=== PATIENT | male | born 1955 | race Caucasian/White ===

== ENCOUNTER 2016-05-23 05:07 | Observation (INO) ==
[2016-05-23] MEDS ORDERED: NS 1,000 ML IV ONE ×2 (05:48→08:54)
[2016-05-23] MEDS ORDERED: TORADOL IV ONE (05:48)
[2016-05-23] MEDS ORDERED: ZOFRAN IV ONE (05:48)
[2016-05-23 05:56] LABS: MANUAL DIFF NEEDED? NO; URINE MICRO REVIEW NEEDED? NO; URINE SOURCE VOIDED
[2016-05-23 05:58] LABS: BASO% 0.2 % (0.0-0.8); EOS# 0.14 X1000 (0.0-0.7); EOS% 2.9 % (0.0-10.0); HEMATOCRIT 38.9 % (42.0-52.0); HEMOGLOBIN 13.8 g/dL (14.0-18.0); LYMPH# 1.02 X1000 (1.2-3.4); LYMPH% 20.9 % (20.5-51.1); MCH 30.1 PG (27-31); MCHC 35.5 g/dL (33-37); MCV 84.7 FL (81-99); MONO# 0.43 X1000 (0.11-0.59); MONO% 8.8 % (1.7-9.3); MPV 8.8 FL (7.4-10.4); NEUT% 67.2 % (42.2-75.2); PLT 121 X1000 (130-400); RBC 4.59 XMIL (4.7-6.1)
[2016-05-23 06:03] LABS: BILIRUBIN URINE NEGATIVE (NEGATIVE); BLOOD URINE MODERATE (NEGATIVE); COLOR YELLOW; GLUCOSE URINE NEGATIVE (NEGATIVE); LEUKOCYTES URINE NEGATIVE (NEGATIVE); NITRITE URINE NEGATIVE (NEGATIVE); PH URINE 5.5; PROTEIN URINE TRACE mg/dL (NEGATIVE); SP GRAVITY URINE 1.028; TURBIDITY URINE CLEAR (CLEAR); UR EPITHELIAL CELLS <10 /HPF (<10); URINE BACTERIA NEGATIVE /HPF; URINE WBC <10 /HPF (<10); UROBILINOGEN URINE NORMAL (NORMAL)
[2016-05-23 06:14] LABS: AGAP 14; ALBUMIN 4.3 g/dL (3.5-5.0); ALKALINE PHOSPHATASE 75 U/L (32-122); BUN 21 mg/dL (8-22); CALCIUM 9.5 mg/dL (8.8-10.2); CHLORIDE 105 mmol/L (98-107); COSMO 291; GOT 20 U/L (10-34); GPT 26 U/L (10-44); POTASSIUM 4.3 mmol/L (3.5-5.1); SODIUM 142 mmol/L (136-145); TCO2 23 mmol/L (25-35); TOTAL BILIRUBIN 0.33 mg/dL (0.20-1.00); TOTAL PROTEIN 6.8 g/dL (6.3-8.3)
[2016-05-23] MEDS ORDERED: MORPHINE IV ONE ×2 (06:39→07:50)
[2016-05-23] MEDS ORDERED: FLEXERIL PO ONE (07:02)
--- NOTE | 2016-05-23 08:06 | Diag Imaging Result Document ---
PROCEDURE NAME: CT ABD/PELVIS W/ IV CONT ONLY - 05/23/2016 CT ABDOMEN PELVIS WITH INTRAVENOUS CONTRAST, 05/23/2016: A CT dose reduction protocol was used. COMPARISON: None. FINDINGS: There is an obstructing left UVJ stone measuring 5 mm. There is moderate left hydronephrosis and hydroureter with delayed renal functioning and perinephric edema. Urinary bladder, prostate, and rectum are normal. There is diverticulosis of the sigmoid colon and descending colon. No bowel obstruction or inflammation. Normal appendix. Spleen size is mildly enlarged measuring 15.8 x 5.6 cm. There are a couple of small bilateral renal cysts. The liver, gallbladder, pancreas, and adrenals are normal. There is significant degeneration throughout the thoracolumbar spine. No acute bony lesion. There is severe degeneration of the sacroiliac joints as well. IMPRESSION: 1. Obstructing left UVJ stone. 2. Mild splenomegaly. 3. Diverticulosis coli. [facility]
[2016-05-23] MEDS ORDERED: LEVAQUIN 500 MG in NS 100 ML IV ONE (08:23)
--- NOTE | 2016-05-23 09:19 | PROVIDER DOCUMENTATION ---
HPI-Abdominal Pain/GI Problem - General Chief Complaint: Flank Pain Stated Complaint: LT SIDE PAIN Time Seen by Provider: 05/23/16 06:48 Source: patient Allergies/Adverse Reactions: Patient Allergies Allergy/AdvReac Type Severity Reaction Status Date / Time No Known Allergies Allergy Verified 05/23/16 05:17 Home Medications: Home Medication List Medication Instructions Recorded Confirmed Last Taken Type Metformin [Glucophage] 500 mg PO WBREAKFAST 06/05/14 05/23/16 05/22/16 07:00 History - History of Present Illness-ABD Nature of Presenting Problems: Patient is a 61 yo M that presents to the ER with left flank pain that radiates to his left groin with n/v. Symptoms came on suddenly. Denies fever, diarrhea, or abdominal pain. Reports history of kidney stones Abdominal Pain Onset Location: reports: flank (left) Pain Radiation: reports: groin (left) Quality of Pain: reports: sharp, stabbing Severity in ED: reports: moderate Onset/Duration: reports: abrupt, this morning Timing: reports: still present, constant Activities at Onset: reports: none Modifying Factors: worse with: urinating Associated Symptoms: reports: back/neck pain, genitourinary problems, nausea, vomiting. denies: diarrhea, fever/chills, shortness of breath Similar Symptoms Previously?: Yes Recently seen or treated by another doctor?: No Review of Systems - Adult - REVIEW OF SYSTEMS - ADULT Constitutional: denies: fever Eyes: reports: no symptoms reported Ears, Nose, Mouth & Throat: reports: no symptoms reported Cardiovascular: denies: chest pain, orthopnea, palpitations Respiratory: denies: cough, shortness of breath, wheezing Gastrointestinal: reports: abdominal pain, nausea, vomiting. denies: diarrhea Genitourinary: reports: dysuria, flank pain. denies: frequency Musculoskeletal: reports: no symptoms reported Integumentary: reports: no symptoms reported Neurological: reports: no symptoms reported Psychiatric: reports: no symptoms reported Endocrine: reports: no symptoms reported Hematologic/Lymphatic: reports: no symptoms reported Allergic/Immunologic: reports: no symptoms reported All Other Systems: Reviewed and Negative Past History - Adult - PAST MEDICAL HISTORY-ADULT Review of Records: reports: Old Records Reviewed, Nursing Assessment Review, Medications Reviewed Genitourinary: reports: kidney stones Endocrine/Immune: reports: Diabetes - PRIOR SURGERIES/PROCEDURES Surgical/Procedure History: reports: none - IMMUNIZATION STATUS Childhood Immunizations: UTD Flu Vaccine: See Nurse Assessment - FAMILY HISTORY Family History: reviewed, not pertinent - SOCIAL HISTORY Smoking: non-smoker Living Situation: family Physical Exam-General - PHYSICAL EXAM-ADULT Initial Vital Signs Reviewed: Yes - CONSTITUTIONAL General Appearance: alert, mild distress - EYES Eyes: PERRL/EOMI, pink conjunctivae - HEAD, EARS, NOSE, MOUTH & THROAT HENMT: normocephalic/atraumatic, moist mucous membranes, normal ENT inspection - NECK Neck: full range of motion, normal inspection - RESPIRATORY Respiratory: lungs clear, normal breath sounds, no respiratory distress, no accessory muscle use - CARDIOVASCULAR Cardiovascular: no murmur, bradycardia - GASTROINTESTINAL (ABDOMEN) Abdominal Exam: normal bowel sounds, soft, no organomegaly, no pulsatile mass, tenderness (left flank) - MUSCULOSKELETAL Back Exam: no vertebral tenderness, CVA tenderness (left) Extremity: normal range of motion, normal inspection, no pedal edema, normal capillary refill - SKIN Integumentary: normal color, warm/dry - NEUROLOGIC Neurologic: grossly normal, no motor/sensory deficits - PSYCHIATRIC Psych/Mental Status: normal mood/affect, normal thought content, normal thought process, oriented x 3 Progress - PLAN OF CARE/RESULTS Progress/Plan/Lab Results: plan of care-labs, meds, ct rss Vital Signs Temp Pulse Resp BP Pulse Ox 05/23/16 05:09 98.1 F 55 L 20 154/81 100 No Known Allergies Allergy (Verified 05/23/16 05:17) Metformin [Glucophage] 500 mg PO WBREAKFAST 06/05/14 Laboratory 05/23/16 05/23/16 05/23/16 05:42 05:42 05:42 WBC 4.89 RBC 4.59 L Hgb 13.8 L Hct 38.9 L MCV 84.7 MCH 30.1 MCHC 35.5 RDW Std Deviation 12.9 Plt Count 121 L MPV 8.8 Immature Gran % (Auto) 0.0 Neut % (Auto) 67.2 Lymph % (Auto) 20.9 [place] % (Auto) 8.8 Eos % (Auto) 2.9 Baso % (Auto) 0.2 Immature Gran # (Auto) 0.00 Neut # (Auto) 3.29 Lymph # (Auto) 1.02 L [place] # (Auto) 0.43 Eos # (Auto) 0.14 Baso # (Auto) 0.01 Sodium 142 Potassium 4.3 Chloride 105 Carbon Dioxide 23 L Anion Gap 14 BUN 21 Creatinine 1.1 Estimated GFR/1.73 m2 > 60 BUN/Creatinine Ratio 19 Glucose 193 H Calculated Osmolality 291 Calcium 9.5 Total Bilirubin 0.33 AST 20 ALT 26 Alkaline Phosphatase 75 Total Protein 6.8 Albumin 4.3 Globulin 2.5 Albumin/Globulin Ratio 1.7 Urine Source VOIDED Urine Color YELLOW Urine Turbidity CLEAR Urine pH 5.5 Ur Specific [place] 1.028 Urine Protein TRACE A Ur Glucose (Stick) NEGATIVE Ur Ketones (Stick) NEGATIVE Urine Blood MODERATE A Urine Nitrite NEGATIVE Urine Bilirubin NEGATIVE Urobilinogen Dipstick NORMAL Urine Leukocytes NEGATIVE Urine WBC (Auto) <10 Urine RBC (Auto) 10-20 A U Epithel Cells (Auto) <10 Urine Bacteria (Auto) NEGATIVE Orders Category Date Time Status CT ABD/PELVIS W/ IV CONT ONLY [CT] Stat Exams 05/23/16 07:02 Draft CBC WITH DIFF [HEME] Stat Lab 05/23/16 05:42 Completed CMP [COMPREHENSIVE METABOLIC PANEL] [CHEM] Stat Lab 05/23/16 05:42 Completed URINALYSIS [URINALYSIS] Stat Lab 05/23/16 05:42 Completed 0.9% Sodium Chloride Inj [Ns] 1,000 ml Med 05/23/16 05:48 Discontinued IV 999 mls/hr 0.9% Sodium Chloride Inj [Ns] 1,000 ml Med 05/23/16 08:54 Active IV 999 mls/hr Cyclobenzaprine [Flexeril] Med 05/23/16 07:02 Discontinued 10 mg PO NOW ONE Ketorolac [Toradol] Med 05/23/16 05:48 Discontinued 30 mg IV NOW ONE Levofloxacin [Levaquin] 500 mg Med 05/23/16 08:23 Active 0.9% Sodium Chloride Inj [Ns] 100 ml IV NOW Morphine Med 05/23/16 06:39 Discontinued 4 mg IV NOW ONE Morphine Med 05/23/16 07:50 Discontinued 4 mg IV NOW ONE Ondansetron [Zofran] Med 05/23/16 05:48 Discontinued 4 mg IV NOW ONE Transfer/Admit Order [TRANSFER] Routine Transfer 05/23/16 09:07 Ordered pt will be admitted to , who saw patient - CT/MRI 1 CT Study: Renal Stone Impression: Abnormal CT Results: 5mm stone Left UVJ with mild hydro - CONSULTS/PCP/HOSPITALIST Notification #1 *Consult/PCP/Hospitalist*: Dr. Leo Long Time Discussed: 08:50 Consult Disposition: Will see in ED, Admit Departure - Departure Time of Disposition Order: 08:50 DIAGNOSIS: Kidney stone on left side Hydronephrosis Qualifiers: Hydronephrosis type: with ureteral calculous obstruction Qualified Code(s): N13.2 - Hydronephrosis with renal and ureteral calculous obstruction Disposition: ADMITTED INPATIENT 09 Certified Medical Emergency: Emergent Condition: Stable Attestation - Scribe Verification/Attestation Scribe:: Jad Tse Acting as Scribe for:: Carlos Aceves Scribe documention review:: This chart was documented by a scribe and accurately reflects the service the provider performed and the decisions made by the provider. Physician Attestation - Physician Attestation I, the provider, attest to the following statement:: Carlos Aceves Physician documentation Attestation:: This documentation recorded by the scribe accurately reflects the service I personally performed and the decisions made by me.
--- NOTE | 2016-05-23 09:52 | HISTORY AND PHYSICAL ---
HISTORY OF PRESENT ILLNESS: Mr. Brandon Balderas is a 61-year-old gentleman with a history of type 2 pug-ehgswau-dfrhwilbg diabetes mellitus, who is well known to me. He waked up this morning with severe left flank pain with radiation to the groin. He had nausea and vomiting. He was able to void. He did not see any gross hematuria. He presented to the ER where a CT IVP demonstrated a distal left UVJ stone measuring 5 mm that was associated with moderate left hydronephrosis. He has gotten several doses of morphine in the ER, but is still having pain. PAST MEDICAL HISTORY: Type 2 fhl-fpsbiiz-siareeggi diabetes mellitus. PAST SURGICAL HISTORY: None. ALLERGIES: No known drug allergies. FAMILY HISTORY: His father had hypertension, CVA, coronary artery disease status post [place]. His mother has type 2 hab-uaccgwb-bzsxhzkns diabetes mellitus. His maternal grandfather and grandmother both had diabetes. MEDICATIONS: Aspirin 81 mg daily, metformin 500 mg b.i.d. SOCIAL HISTORY: He has never smoked. He does not consume alcoholic beverages. REVIEW OF SYSTEMS: General: He denies any recent weight gain or weight loss. HEENT: No loss of visual or auditory acuity. CV: No chest pain, palpitations, or anginal equivalents. Pulmonary: No shortness of breath, PND, orthopnea. GI: No reflux, dysphagia, melena, hematochezia, change in bowel habits or rectal bleeding. Endocrine: No polyuria, no polydipsia. No cold or heat intolerance. Skin: No easy bruisability. Neuro: No migraines or seizures. : See HPI. PHYSICAL EXAMINATION: GENERAL: This is a well-developed, well-nourished, 61-year-old, gentleman in no apparent distress. He is afebrile. VITAL SIGNS: Pulse 55, respirations 20, BP 154/81. HEENT: Fundi with sharp disks and vessels. Pupils equal, round, reactive to light. Extraocular eye movements intact. TMs without bullae. NECK: Supple. No masses, JVD or bruits. CV: Regular rate and rhythm. LUNGS: Clear. ABDOMEN: Soft, nontender, with active bowel sounds. No hepatosplenomegaly. No abdominal bruits. BACK: No CVA tenderness. /RECTAL: Exams deferred. NEUROLOGIC: Nonfocal. LABS: A CBC demonstrated white count of 4.8, hemoglobin 13.8, hematocrit 38.9, and a platelet count of 121,000. Electrolytes demonstrate the following: Sodium 142, potassium 4.3, chloride 103, CO2 23, BUN 21, creatinine 1.1, glucose 193. His urinalysis demonstrated moderate blood and trace protein. ASSESSMENT AND PLAN: 1. Distal left ureterovesical stone with associated hydronephrosis. I am going to admit him to [facility]. I will begin normal saline at 75 mL per hour, and will treat his pain with Dilaudid 1 mg, with Phenergan 12.5 mg intravenous every 6 hours as needed. We will consult Dr. Crawford for surgical evaluation. 2. Type 2 mfh-oqwxjak-wukdkvtdt diabetes mellitus. While he is on nothing by mouth, I will place him on pattern sugars and Humulin R sliding scale. We will hold his metformin. 3. Given his comorbid conditions and clinical presentation, I believe that it is reasonable to admit him to the hospital for further evaluation and management of the underlying renal stone. At this point in time, I anticipate that he will be in the hospital for only 1 midnight, and I will therefore place him in outpatient status with observation services. As I anticipate that he will be going to surgery today, I will hold Lovenox as deep vein thrombosis prophylaxis.
[2016-05-23] MEDS ORDERED: FENTANYL ONE (11:59)
[2016-05-23] MEDS ORDERED: DIPRIVAN 1% ONE (11:59)
[2016-05-23] MEDS: MORPHINE ONE ×3 (12:16→12:28)
[2016-05-23] MEDS ORDERED: LR 500 ML ONE (12:25)
[2016-05-23] MEDS ORDERED: ANESTHESIA PB SET 88 IN 5742 ONE (12:32)
[2016-05-23] MEDS ORDERED: XYLOCAINE-MPF 2% ONE (12:32)
[2016-05-23] MEDS ORDERED: LR 1,000 ML ONE (12:32)
[2016-05-23] MEDS ORDERED: ZOFRAN ONE (12:32)
[2016-05-23] MEDS ORDERED: EPHEDRINE ONE (12:32)
--- NOTE | 2016-05-23 13:10 | Diag Imaging Result Document ---
PROCEDURE NAME: FLUROSCOPY CYSTO - 05/23/2016 LEFT RETROGRADE PYELOURETEROGRAM: COMPARISON: None available. FINDINGS: Fourteen spot fluoroscopic images were provided, which was performed during left pyeloureterogram and left ureteral stent placement by Dr. Kali Crawford. On these images, the known obstructing stone in the distal left ureter seen on a very recent CT cannot clearly be identified. There is mild left hydronephrosis. On the final image, there is a newly placed left ureteral stent in the expected position. IMPRESSION: As above. Please correlate with live fluoroscopic imaging.
[2016-05-23] MEDS ORDERED: NORCO-10 PO PRN (13:52)
[2016-05-23] MEDS ORDERED: MORPHINE IV PRN (13:52)
[2016-05-23 13:59] VITALS: BP 128/74
[2016-05-23] MEDS ORDERED: NS 1,000 ML IV SCH (14:53)
[2016-05-23] MEDS ORDERED: ZOFRAN IV PRN (14:53)
[2016-05-23] MEDS ORDERED: PHENERGAN IV PRN (14:53)
[2016-05-23] MEDS ORDERED: SODIUM CHLORIDE 0.9% INJ PRN (14:53)
[2016-05-23] MEDS ORDERED: DILAUDID IV PRN (14:53)
[2016-05-23] MEDS ORDERED: TYLENOL PO PRN (14:53)
[2016-05-23] MEDS: HUMALOG SUBQ SCH ×2 (16:05→18:00)
[2016-05-23] MEDS ORDERED: DITROPAN PO PRN (17:08)
[2016-05-23] MEDS ORDERED: ZOFRAN ODT PO PRN (17:09)
[2016-05-24] MEDS ORDERED: FLOMAX PO SCH (09:00)
--- NOTE | 2016-05-30 07:35 | OPERATIVE NOTE ---
PROCEDURE DATE: 05/23/2016 SURGEON: Kali Crawford MD PREOPERATIVE DIAGNOSES: 1. 5 mm left distal ureteral stone. 2. Hydronephrosis. 3. Flank pain. PRIMARY PROCEDURES: 1. Cystoscopy. 2. Left ureteroscopy, laser lithotripsy, stone basket extraction, placement of 6-[place], 24 cm ureteral stent. INDICATIONS: A 61-year-old male with diabetes mellitus who presented with significant left flank pain. He underwent CT scan revealing left distal 5 mm ureteral stone with hydronephrosis. He continues to have significant pain. He was counseled on treatment options and elected to proceed with intervention with ureterostomy. FINDINGS: Obstructing stone, hydronephrosis, successful stent placement, stone was sent off for analysis. PROCEDURE IN DETAIL: After obtaining informed consent, patient was brought to the operating room. Perioperative antibiotics and laryngeal mask airway anesthesia were administered. He was placed in lithotomy position, prepped and draped in sterile fashion. A 21-[place] rigid cystoscope was used to gain access to the bladder, which was then examined in systematic fashion. He had bilobar prostatic hypertrophy. His bladder revealed no evidence of mucosal lesions, excessive trabeculations, or diverticula noted. We turned attention to the left ureteral orifice, which was cannulated with a PTFE wire. It was advanced up to the level of the left renal pelvis. Following that, we introduced the rigid ureteroscope. The stone was visible and appeared to be obstructing. I used 0 Nitinol basket to secure it. A 365 micron laser fiber with holmium laser settings of 0.8 joules and 8 hertz were used to break the stone up into small fragments and extract them. The fragments were sent off for analysis. Repeat ureteroscopy showed no evidence of ureteral injury or residual sizable fragments remaining. We elected to place ureteral stent given the degree of mucosal edema. In a standard fashion a 6-[place] 24 cm ureteral stent was advanced over the wire via the cystoscope with the proximal coil position confirmed fluoroscopically and distal coil directly visualized. The string was left attached to the stent. Bladder was emptied, cystoscope was removed, he was extubated and taken to PACU for further recovery. ESTIMATED BLOOD LOSS: None. COMPLICATIONS: None. DISPOSITION: To PACU, subsequently floor as he was admitted from the emergency room for observation. cc: Kali MD Brayan Tate MD
== END 2016-05-23 18:32 | disposition home or self-care (01) ==
LOC: ED 05:07 → 3N 10:08
PROVIDERS: ADMIT Internal Medicine; ATTEND Internal Medicine

== ENCOUNTER 2018-11-10 14:44 | Observation (INO) ==
[2018-11-10] MEDS ORDERED: TYLENOL PO PRN (15:27)
[2018-11-10] MEDS ORDERED: SALINE LOCK IV FLUID XX ONE (15:27)
[2018-11-10] MEDS ORDERED: ZOFRAN IV PRN (15:27)
--- NOTE | 2018-11-10 15:56 | EKG Report ---
Test Performed on : 11/10/2018 3:44:46 PM Test Reason : chest pain Blood Pressure : / mmHG Vent. Rate : 062 BPM Atrial Rate : 062 BPM P-R Int : 160 ms QRS Dur : 072 ms QT Int : 404 ms P-R-T Axes : 059 079 040 degrees QTc Int : 410 ms Normal sinus rhythm. Normal ECG When compared with ECG of 05-JUN-2014 09:37, No significant change was found Confirmed by Devika WU, Gallito Parker ([id number]) on 11/11/2018 10:15:13 PM
[2018-11-10 16:14] LABS: HEMOGLOBIN 12.2 g/dL (14.0-18.0); MCH 29.2 PG (27-31); MCHC 33.9 g/dL (33-37); MCV 86.1 FL (81-99); MPV 9.6 FL (7.4-10.4); RBC 4.18 XMIL (4.7-6.1); RDW 13.3 % (11.5-14.5); WBC 3.39 X1000 (4.8-10.8)
[2018-11-10] MEDS: NITROGLYCERIN TOP SCH ×2 (16:27→22:56)
[2018-11-10] MEDS: NS 1,000 ML IV SCH (16:28)
[2018-11-10] MEDS: LOVENOX SUBQ SCH (16:29)
[2018-11-10 16:36] LABS: AGAP 13; ALB/GLOB RATIO 2.3; ALBUMIN 4.6 g/dL (3.5-5.0); ALKALINE PHOSPHATASE 99 U/L (32-122); AMYLASE 17 U/L (20-200); BUN 16 mg/dL (8-22); CHLORIDE 104 mmol/L (98-107); CK PROFILE 110 U/L (24-204); COSMO 289; CREATININE 0.7 mg/dL (0.7-1.2); ESTIMATED GFR > 60; GLUCOSE 221 mg/dL (70-104); GOT 17 U/L (10-34); GPT 22 U/L (10-44); LIPASE 12 U/L (13-60); SODIUM 141 mmol/L (136-145); TCO2 24 mmol/L (25-35); TOTAL BILIRUBIN 0.42 mg/dL (0.20-1.00); TOTAL PROTEIN 6.6 g/dL (6.3-8.3)
[2018-11-10] MEDS: ANTIVERT PO SCH ×2 (17:39→22:56)
[2018-11-11] MEDS: LOVENOX SUBQ SCH (03:07)
[2018-11-11] MEDS: NITROGLYCERIN TOP SCH ×2 (03:10→08:57)
[2018-11-11] MEDS: NS 1,000 ML IV SCH (04:54)
[2018-11-11] MEDS ORDERED: PRILOSEC PO SCH (07:00)
[2018-11-11] MEDS ORDERED: GLUCOPHAGE PO SCH ×2 (08:00→21:00)
[2018-11-11] MEDS ORDERED: LEXISCAN ONE (08:33)
[2018-11-11] MEDS ORDERED: ASPIRIN PO SCH (09:00)
[2018-11-11 09:06] LABS: CHOLESTEROL 121 mg/dL (0-200); HDL 26 mg/dL (35-55); LDL 77 mg/dL; TRIGLYCERIDES 92 mg/dL (39-160); VLDL 18 mg/dL
[2018-11-11] MEDS: ANTIVERT PO SCH (10:19)
[2018-11-11 11:11] VITALS: BP 120/71
--- NOTE | 2018-11-11 13:32 | Diag Imaging Result Document ---
PROCEDURE NAME: MYOCARDIAL PERF SCAN, STR/REST - 11/11/2018 PROCEDURE: Lexiscan sestamibi interpretation. SUMMARY: The patient was administered 14.0 mCi of technetium-99m sestamibi, after which resting cardiac images were obtained. The patient was subsequently administered Lexiscan 0.4 mg intravenously after which the heart rate went from 57 beats per minute to 79 beats per minute, and the blood pressure went from 118/69 to 97/54. With Lexiscan, the patient denied chest discomfort. Following the administration of Lexiscan, the patient was administered 41.6 mCi of technetium-99m sestamibi, after which gated stress cardiac images were obtained. Baseline ECG demonstrates sinus bradycardia and was within normal limits. With Lexiscan, there were no diagnostic ST-segment changes. SPECT images were reconstructed in the short, horizontal long, and vertical long axis. Review of these images demonstrated no scintigraphic evidence of inducible myocardial ischemia or prior infarct. Gated images demonstrate a calculated left ventricular ejection fraction of 66% with symmetrical wall motion. CONCLUSIONS: 1. Adequate response to Lexiscan. 2. Clinically negative for chest pain. 3. Electrocardiographically negative for Lexiscan-induced myocardial ischemia. 4. Lexiscan sestamibi images demonstrated no scintigraphic evidence of inducible myocardial ischemia. Normal left ventricular systolic function demonstrated. cc: MD Brayan Bolaños MD
--- NOTE | 2018-11-11 19:31 | HISTORY AND PHYSICAL ---
CHIEF COMPLAINT: Chest pain. HISTORY OF PRESENT ILLNESS: Mr. Brandon Balderas is a 63-year-old gentleman who is well known to me. He has a history of type 2 noninsulin-dependent diabetes mellitus complicated by polyneuropathy. He presented to the office complaining of chest pain. He has had chest pressure and chest tightness in the substernal and left anterior chest regions, with radiation of pain to his neck and arm. His symptoms have been waxing and waning in intensity. His symptoms occur predominantly with activity. His initial EKG did not demonstrate any acute ischemic changes. He is also with complaint of dizziness. He reports that he is very dizzy and lightheaded. The room spins about him. He has nausea and vomiting and blurred vision. He feels as if he may pass out. The dizziness is made worse by turning his head from side to side. PAST MEDICAL HISTORY: As above. PAST SURGICAL HISTORY: 1. Circumcision. 2. Lithotripsy with renal stone extraction. ALLERGIES: No known drug allergies. FAMILY HISTORY: His father had hypertension, CVA, ischemic heart disease, status post [place]. His mother had diabetes. Both his maternal grandfather and maternal grandmother also had diabetes. MEDICATIONS: 1. Aspirin 81 mg daily. 2. Metformin 500 mg b.i.d. REVIEW OF SYSTEMS: He denies any recent weight gain or weight loss.HEENT: No loss of visual or auditory acuity. CV: See HPI. Pulmonary: No shortness of breath, PND or orthopnea. GI: No reflux, dysphagia, melena, hematochezia, change in bowel habits, or rectal bleeding. Endocrine: No polyuria, no polydipsia. No cold or heat intolerance. Skin: No easy bruisability. : No leakage of urine with coughing or laughing. Neurologic: No migraines or seizures. Psychiatric: No history of depression. PHYSICAL EXAMINATION: GENERAL: This is a well developed, well nourished, 63-year-old gentleman in no apparent distress. VITAL SIGNS: Blood pressure 140/80, pulse 62, height 72 inches, weight 198 pounds, BMI 26.9. HEENT: Fundi with arteriolar wall thickening. Pupils equal, round, reactive to light. Extraocular eye movements intact. NECK: Supple. No masses, JVD or bruits. CV: Regular rate and rhythm. LUNGS: Clear. ABDOMEN: Soft, nontender, with active bowel sounds. No hepatosplenomegaly. No abdominal bruits. EXTREMITIES: Without edema. SKIN: No palpable purpura. EXTREMITIES: He has calluses on the lateral aspects of each great toe and a plantar callus on the right foot. There are no deformities of the toes or feet. No ulcers were noted. NEUROLOGIC: He has decreased light touch in the distal extremities bilaterally. ASSESSMENT AND PLAN: 1. Nausea and vomiting, secondary to acute vertigo. I will rehydrate him with normal saline, begin Antivert 25 mg t.i.d., and will follow him clinically. 2. Chest pain. He has a history of diabetes. His father had known ischemic heart disease. I will treat him with topical nitrates, aspirin, and we will rule him out for myocardial ischemia by serial enzymes. If his enzymes are negative, we will proceed with a Myoview GXT with rest/stress protocol in the morning. 3. Given his comorbid conditions and clinical presentation, I believe that it is reasonable to admit him to the hospital for further evaluation. I anticipate that he will be in the hospital for at least 1 midnight, and I will therefore place him in outpatient status with observation services. cc: Brayan Long MD
--- NOTE | 2018-11-12 14:10 | DISCHARGE SUMMARY ---
ADMISSION DATE: 11/10/2018 DISCHARGE DATE: 11/11/2018 DISCHARGE DIAGNOSES: 1. Noncardiac chest pain. 2. Type 2 ewh-yarisbe-phvwzytuf diabetes mellitus controlled and complicated by polyneuropathy. 3. Acute vertigo with nausea and vomiting. DISCHARGE INSTRUCTIONS: 1. Return to clinic in 2 weeks to see me Dr. Harjinder Long. 2. Activity as tolerated. 3. 1800 calorie ADA diet. DISCHARGE MEDICATIONS: 1. Metformin 500 mg b.i.d. 2. Antivert 12.5 mg q.8 hours p.r.n. 3. Aspirin 325 mg daily. DISCHARGE PHYSICAL EXAMINATION: General: This is a well-developed, well-nourished 63-year-old gentleman in no apparent distress. Vital Signs: Temperature 98.3 degrees, pulse 55, respirations 13, and BP 120/73. CV: Regular rate and rhythm. Lungs: Clear. Abdomen: Soft and nontender with active bowel sounds. DISPOSITION: Mr. Balderas was admitted to [facility] as an outpatient with observation services. He was treated with aspirin, topical nitrates, and ruled out for myocardial ischemia by serial enzymes. We proceeded with a Myoview GXT with rest stress protocol. There were no perfusion abnormalities. He had a normal ejection fraction of 66%. He has a history of type 2 yrf-dymstcu-grrfznzyf diabetes mellitus. He was continued on an 1800 calorie ADA diet, pattern sugars, Humulin R sliding scale, and metformin 500 mg b.i.d. He has no previous history of mixed hyperlipidemia. Given the chest pain, we did order a lipid profile. His lipid profile demonstrated total cholesterol of 121, triglycerides 92, HDL 26, and an LDL of 77. I do not believe that a statin is indicated at this time. He had nausea and vomiting due to acute bilateral positional vertigo. We rehydrated him with normal saline and treated him with Antivert with resolution of his symptoms. Having reached maximum hospital benefit, the patient was discharged in stable condition. cc: Brayan Long MD
== END 2018-11-11 14:02 | disposition home or self-care (01) ==
LOC: DIRADM → 2N 14:44
PROVIDERS: ADMIT Internal Medicine; ATTEND Internal Medicine